=== PATIENT | female | born 1990 | race Hispanic/Latino ===

== ENCOUNTER 2016-12-30 01:26 | Emergency (ER) | payer OTHER ==
[~2016-12-30] VITALS: Ht 157.5 cm; Wt 92.7 kg
[~2016-12-30 01:26] MED LIST: DOCU-41 PO; FEXO30TA19 PO; FLUT9.9S NS; HYDR-4003 PO; IBUP-1827 PO; MULT-1018 PO
[2016-12-30 01:31] VITALS: BP 118/83; PULSE 94; RESP 16; O2SAT 98
--- NOTE | 2016-12-30 03:11 | ED.REPORT ---
HPI-Abd Pain F Under 40 Date of Service December 30, 2016 ED Provider: Arnold Gonzalez MD Pt is a 26 year old female presenting to the ED complaining of intermittent abdominal pain since 2009 about once per year. This year, it has happened 3 times, each at night, with sharp pain radiating to her back. Pt has had a CT scan in 2009 which was normal but no ultrasound has been done. Nursing Notes Stated Complaint: ABDOMINAL PAIN Chief Complaint: Female Abdominal Pain Nursing Notes Reviewed: Yes Allergies: Coded Allergies: Sulfa (Sulfonamide Antibiotics) (Verified Allergy, Severe, RASH, 07/02/16) Dust (Verified Adverse Reaction, Severe, NASAL CONGESTION,SNEEZING, ) Uncoded Allergies: GRASSES (Adverse Reaction, Severe, NASAL CONGESTION,SNEEZING, 07/02/16) Scheduled Fexofenadine ODT (Children's Maeve Allergy) 30 Mg Tablet 30 MG PO DAILY Fluticasone Propionate (Flonase Allergy Relief) 50 Mcg/Actuation [place].susp 9.9 ML NS DAILY Multivitamin (Multi Vitamin Daily) 1 Each Tablet 1 EACH PO DAILY Scheduled PRN Docusate Sodium (Colace) 100 Mg Capsule 100 MG PO BID PRN PRN For Constipation Hydrocodone-Acetaminophen 5-325 mg (Hydrocodone-Acetaminophen 5-325 mg) 1 Each Tablet 1-2 TABLET PO Q6H PRN PRN For Pain Ibuprofen (Ibuprofen) 600 Mg Tablet 600 MG PO TID PRN PRN For Pain General Time Seen by MD: 03:10 Chief Complaint Abdominal pain Hx Obtained From: Patient Arrived By: Walk-in Sudden in Onset?: No Onset Occurred: Onset unknown Symptom Duration: Since onset Progression since Onset: Constant Location: : Diffuse Quality: Painful Severity: Current: Pain level 4 out of 10 Severity: Maximum: Severe Recent Healthcare: No recent doctor visit, No recent hospitalization Similar Sx Previous: Yes Past Medical History Past Medical History denies Past Surgical History denies Smoking History Unknown if Ever Smoker Ambulatory Status Independent Review of Systems Respiratory: Denies: Wheezing GI: Reports: Abdominal pain, Denies: Vomiting Musculoskeletal: Reports: Back pain Complete sys rev & neg: except as marked. Physical Exam Initial Vital Signs Vital Signs (First) Date Time Temp Pulse Resp B/P Pulse Ox O2 Delivery O2 Flow Rate FiO2 12/30/16 01:31 37.2 94 16 118/83 98 Room Air Initial VS: Reviewed Head / Eyes: Atraumatic, Normocephalic, PERRL ENT: Mucous membranes moist, Conjunctiva normal, No scleral icterus Neck: Supple, Non-tender, Full range of motion Skin: Warm, Dry, No cyanosis Neurologic: Alert, Oriented, Nonfocal Psychiatric: Mood/affect normal, Behavior normal, Normal thought content General/Constitutional: Awake, Alert, No acute distress Appearance / Presentation: Positive: Obese Respiratory / Chest: Breath sounds NL, Breath sounds = bilat, No respiratory distress, No rales, No rhonchi, No wheezing Cardiovascular: Heart rate NL, Regular rhythm, Heart sounds NL, Peripheral circulation NL Abdomen: Atraumatic Tenderness/Guarding/Rebound: Positive: Tender RUQ... (Mild), Tender epigastric Interpretation & Diagnostics Lab Results Interpretation Result Diagram: 12/30/16 0330 12/30/16 0330 Test 12/30/16 03:00 12/30/16 03:30 Urine Color Straw (YELLOW) Urine Appearance Clear (CLEAR,HAZY) Urine pH 5.5 (5.0-8.0) Urine Specific [place] 1.015 (1.003-1.035) Urine Protein Negativemg/dL (NEG,TRACE) Urine Glucose (UA) Negativemg/dL (NEGATIVE) Urine Ketones Negativemg/dL (NEGATIVE) Urine Occult Blood Trace (NEGATIVE) Urine Nitrite Negative (NEGATIVE) Urine Bilirubin Negative (NEGATIVE) Urine Urobilinogen Normalmg/dL (NORMAL) Urine Leukocyte Esterase Negative (NEGATIVE) Urine RBC 0-2/hpf (0-2) Urine WBC 0-5/hpf (0-5) Urine Epithelial Cells Moderate/hpf (NONE-MOD) Urine Crystals None seen (NONE SEEN) Urine Bacteria Few/hpf (NONE-FEW) Urine Hyaline Casts None/lpf (NONE) Urine Granular Casts None seen (NONE SEEN) Urine Waxy Casts None seen (NONE SEEN) Urine Red Blood Cell Casts None seen (NONE SEEN) Urine White Blood Cell Casts None seen (NONE SEEN) Urine Mucus None seen (None Seen) Urine Trichomonas None seen (NONE SEEN) Urine Yeast None (NONE SEEN) Urinalysis Comment None Urine Culture Reflexed Not indicated White Blood Count 8.7th/mm3 (3.8-10.1) Red Blood Count 4.05mil/mm3 (3.90-5.20) Hemoglobin 12.3g/dL (12.0-15.6) Hematocrit 35.2% (35.0-46.0) Mean Corpuscular Volume 86.9fL (81-100) Mean Corpuscular Hemoglobin 30.4pg (27.0-35.0) Mean Corpuscular Hemoglobin Concent 34.9% (32.0-37.0) Red Cell Distribution Width 12.2% (12.3-15.4) Platelet Count 202bil/L (150-400) Neutrophils (%) (Auto) 73.8% (40-74) Lymphocytes (%) (Auto) 17.0% (14-46) Monocytes (%) (Auto) 6.5% (4-12) Eosinophils (%) (Auto) 2.4% (0-5) Basophils (%) (Auto) 0.2% (0-3) Sodium Level 137mEq/L (134-144) Potassium Level 4.0mEq/L (3.5-5.2) Chloride Level 102mEq/L (97-108) Carbon Dioxide Level 20mmol/L (18-29) Blood Urea Nitrogen 14mg/dL (6-20) Creatinine 0.54mg/dL (0.57-1.00) Estimat Glomerular Filtration Rate 194mL/min (>59) Glucose Level 124mg/dL (60-99) Calcium Level 9.6mg/dL (8.5-10.1) Magnesium Level 1.8mg/dL (1.6-2.6) Total Bilirubin 0.2mg/dL (0.0-1.2) Aspartate Amino Transf (AST/SGOT) 36U/L (0-50) Alanine Aminotransferase (ALT/SGPT) 24U/L (0-32) Alkaline Phosphatase 65U/L (25-150) Total Protein 7.4g/dL (6.4-8.4) Albumin 4.2g/dL (3.4-5.0) Lipase 30U/L (13-60) Hold Cullen Top Tube Received (Received) Lab values outside NL range: no clinical significance. Re-Eval/Medical Decision Med Decision/Clinical Course 26-year-old female with intermittent upper abdominal pain. Labs are normal tonight and there is no indication for acute imaging at this time. Recommend outpatient ultrasound to rule out gallstones. This presentation is not typical of serious or surgical disease. Re-Evaluation/Progress : Time of Eval: 04:46 Patient Status: Condition improved Re-Evaluation/Progress Note: Discussed plan for discharge and follow up with PCP. Counseled Regarding: Diagnosis, Lab results, Need for follow-up, When/why to return to ED Discharge & Departure Primary Impression: Epigastric abdominal pain Disposition: Home Discharge Condition All VS Reviewed: Yes Condition: Improved Patient Instructions: Acute Abdominal Pain (ED) Additional Instructions: Your labs are all normal. The pattern of your pain can sometimes be due to gallstones. I recommend that you talk to you family doctor about an outpatient ultrasound. Return to the emergency room if significantly worsening. Referrals: Ewa Lechuga DO (PCP) Alejandroibfroylan Attestation Portions of this note were transcribed by Lelia Holly. I, Dr. Gonzalez personally performed the history, physical exam and medical decision-making; I reviewed and confirmed the accuracy of the information in the transcribed note. Signed by: Chrissy Potter, 12/30/2016 at 0456. copies to: Ewa Lechuga Howard L MD December 30, 2016 03:11 LELIA HLOLY December 30, 2016 03:17
[2016-12-30 03:15] LABS: APPEARANCE,URINE CLEAR (CLEAR,HAZY); COLOR,URINE STRAW (YELLOW); OCCULT BLOOD,URINE TRACE (NEGATIVE); PH,URINE 5.5 (5.0-8.0); UROBILINOGEN,URINE NORMAL (NORMAL)
[2016-12-30 03:40] LABS: BASOPHILS % (AUTO) 0.2 % (0-3); EOSINOPHILS % (AUTO) 2.4 % (0-5); MONOCYTES % (AUTO) 6.5 % (4-12); Mean Corpuscular Hemoglobin 30.4 pg (27.0-35.0); Mean Corpuscular Volume 86.9 fL (81-100); NEUTROPHILS % (AUTO) 73.8 % (40-74); Platelet Count 202 bil/L (150-400)
[2016-12-30 04:00] LABS: Magnesium 1.8 mg/dL (1.6-2.6)
[2016-12-30 05:16] VITALS: BP 125/81; PULSE 81; RESP 16; O2SAT 97
[2017-01-18] MEDS ORDERED: BIRTH CONTROL PO (12:58)
[2017-01-18] MEDS ORDERED: KEN25CR TP (12:58)
== END 2016-12-30 05:10 | disposition home or self-care (01) ==
LOC: SED 01:26
DX: R10.13 Epigastric pain (principal); Z88.2 Allergy status to sulfonamides

== ENCOUNTER 2017-01-23 06:22 | Day surgery (SDC) | payer OTHER ==
[~2017-01-23] VITALS: Ht 160 cm; Wt 92.1 kg
[2017-01-23] VITALS (13 sets, daily range): BP systolic 97–122; BP diastolic 54–71; PULSE 71–112; RESP 15–21; O2SAT 95–100
[~2017-01-23 06:22] MED LIST changes: +BIRTH CONTROL PO; +CeFAZolin 2 Gm/50 mL D5W IV Premix IV ONE; -DOCU-41 PO; -HYDR-4003 PO; +KEN25CR TP; +Lactated Ringer's 1,000 ML IV SCH
[2017-01-23] MEDS ORDERED: MetoCLOpramide 5 mg/mL 2 mL Inj ONE (06:23)
[2017-01-23] MEDS ORDERED: fentaNYL-PF 50 mCg/mL 2 mL Inj ONE (06:23)
[2017-01-23] MEDS ORDERED: Glycopyrrolate 0.2 MG/ML 1mL Inj ONE (06:23)
[2017-01-23] MEDS ORDERED: Propofol 10 mg/mL 20 mL Inj ONE (06:23)
[2017-01-23] MEDS ORDERED: Neostigmine 1 mg/mL 10 mL Inj ONE (06:23)
[2017-01-23] MEDS ORDERED: Ondansetron 2 mg/mL 2 mL Inj ONE (06:23)
[2017-01-23] MEDS ORDERED: Rocuronium 10 mg/mL 5 mL Inj ONE (06:23)
[2017-01-23] MEDS ORDERED: Dexamethasone 4 mg/mL Inj ONE (06:23)
[2017-01-23] MEDS ORDERED: Lactated Ringer's 1,000 ML IV ONE (08:02)
[2017-01-23] MEDS ORDERED: Lactated Ringer's 500 ML IV PRN (08:27)
[2017-01-23] MEDS ORDERED: Lactated Ringer's 1,000 ML IV SCH (08:27)
--- NOTE | 2017-01-23 08:27 | PCM.HPANE ---
Patient Data Surgeon Admitting Provider: Attending Provider:Marce Leon MD Primary Care Physician:Ewa Lechuga DO Other Provider:Pancho Short Anesthesia Reason for Visit Chronic Cholecystitis Ht/WT & BMI Height (Feet): 5 Height (Inches): 3 Weight (Kilograms): 92.125 Body Mass Index 35.00 Allergies Coded Allergies: Sulfa (Sulfonamide Antibiotics) (Verified Allergy, Severe, RASH, 07/02/16) Dust (Verified Adverse Reaction, Severe, NASAL CONGESTION,SNEEZING, ) Uncoded Allergies: GRASSES (Adverse Reaction, Severe, NASAL CONGESTION,SNEEZING, 07/02/16) Past Anesthesia History Anesthesia History: Denies:: Anesthesia Reactions, Fam Anesthesia Reaction, Fam Malignant Hypertherm, Malignant Hyperthermia Diabetes History Hx Diabetes?: No MRSA MRSA: No Medications Hypertension Medication: No Home Meds Incl Beta Rick: No Reported Medications [ Control] No Conflict Check1 Tab PO DAILY 01/18/17 Triamcinolone Acet (Triamcinolone Acetonide Cream)1 Applic/0.25 Gm Cr1 Applic TP BID #60 GM Ref 0 0.1% 01/18/17 Ibuprofen 600 Mg [id number] Mg PO TID PRN For Pain Ref 0 07/02/16 Multivitamin (Multi Vitamin Daily)1 Each Tablet1 Each PO DAILY 30 Days Ref 0 07/02/16 Fluticasone Propionate (Flonase Allergy Relief)50 Mcg/Actuation [place].susp9.9 Ml NS DAILY 07/02/16 Fexofenadine ODT (Children's Maeve Allergy)30 Mg [id number] Mg PO DAILY 07/02/16 Discontinued Reported Medications Hydrocodone-Acetaminophen 5-325 mg 1 Each Tablet1-2 Tablet PO Q6H PRN For Pain Ref 0 07/02/16 Docusate Sodium (Colace)100 Mg [id number] Mg PO BID PRN For Constipation Ref 0 07/02/16 History History of ENT Problems?: Yes HEENT History: Positive for:: Sinus Problem (ALLERGIC RHINITIS,HX OF SEPTAL DEVIATION,EPISTAXIS HX ALLERGY SHOTS) Denture Type: None Teeth Condition: Within Normal Limits Hx of Heart Problems?: No Cardiovascular History: Denies:: AICD Abdominal Aortic Aneurism Atrial Fibrillation Cardiac Surgery Chest Pain Congestive Heart Failure Coronary Artery Disease Edema Heart Murmur Hypertension Irregular Heartbeat Pacemaker Peripheral Vascular Rheumatic Fever Thrombophlebitis Valvular Heart Disease Hx of Respiratory Problem?: Yes Respiratory History: Positive for:: Dyspnea (INTERMITTANT WHEEZING R/T ALLERGIES) Denies:: Asthma COPD Chest Surgery Cough Emphysema Hemoptysis Oxygen Administration Pneumonia Pulmonary Embolism Tuberculosis Use of C-PAP Machine Use of Inhalers / NEBS Hx Neurologic Problems?: Yes Neurological History: Positive for:: Headaches Hx of GI Problems?: Yes Hx of Problems?: Yes Genitourinary History: Positive for:: Urinary Tract Infection (HX OF DURING ) Female Hx: Denies:: Currently (S/P LT OVARIAN DERMOID CYSTECTOMY) Skin History: Positive for:: History Skin Disorders? (HX HIVES-UNKNOWN ETIOLOGY) Denies:: Pressure Ulcers Hx Musculoskeletal Problems?: No Hx of Psycho/Social Problems?: No Hx Surgeries?: Yes (LT OVARIAN DERMOID CYSTECTOMY) Hx Any Other Health Problems?: Yes Other History: Positive for:: Hospitalization ([facility]) Denies:: Cancer Endocrine Disease Thyroid Disease History Blood Transfusions: Denies:: Blood Transfusions Hx Diabetes: No Hx Alcohol Use: NoHx Substance Use: No Smoking Status: Unknown if Ever Smoker Have You Smoked inLast 12 mo: No Stop/Bang S-Snoring: Do You Snore Loudly: No T-Tired: feel tired, fatigued: Yes O-Obsered: Observed not breath: No P-Blood Pressure: treated: No B- Body Mass Index > 35 kg/m2: Yes A- Age over 50: No N- Neck Large Circumference: No G- Gender Male: No CARMEL Total Score: 2 CARMEL Risk Assessment: Low Risk, <3 Yes Risk Assessment Category Category 1A: Patient has history of documented sleep apnea, and HAS NOT received any narcotic, sedative or anesthesia administration during this stay. Category 1B: Patient has history of documented sleep apnea, and HAS received any narcotic , sedative or anesthesia administration during this stay Category 2: Patient has SUSPECTED Obstructive Sleep Apnea, and HAS received any narcotic , sedative or anesthesia administration during this stay. Category 3: Patient has SUSPECTED Obstructive Sleep Apnea and HAS NOT received narcotic, sedative or anesthesia administration during this stay. Category 4: Outpatient in Procedural Areas with known sleep apnea or who screen positive for High Risk via the STOP/BANG questionnaire. Exam Exam General Appearance: Alert HEENT/AIRWAY: MP 1 Lungs: Clear to Auscultation, Normal Air Movement Heart: Exam Unremarkable, Regular Rate/Rhythm, No Murmurs/Rubs/Gallops Plan Impression Patient chart reviewed, patient interviewed and anesthestic plan with risks, benefits, and alternatives discussed, and informed consent obtained. NPO per Anesth. Guidelines: Yes ASA Physical Status: ASA2 Mod Systemic Disease Anesthetic Plan: GA Bene/Risks/Altern/Consents: Yes HP Complete Prior to Induction: Yes Solitario Fuentes MD Jan 23, 2017 07:44
[2017-01-23] MEDS ORDERED: Bupivacaine-MPF 0.5% W/EPI 30 mL Inj INFILTRATE ONE (08:28)
[2017-01-23] MEDS ORDERED: HYDROmorphone 1 mg/mL Inj IVPUSH PRN (08:30)
[2017-01-23] MEDS ORDERED: Phenylephrine 10,000 mCg/mL Inj IVPUSH PRN (08:30)
[2017-01-23] MEDS ORDERED: Atropine 0.4 mg/mL Inj IVPUSH PRN (08:30)
[2017-01-23] MEDS ORDERED: Ondansetron 2 mg/mL 2 mL Inj IVPUSH PRN (08:30)
[2017-01-23] MEDS ORDERED: Labetalol 5 mg/mL 4 mL Inj IV PRN (08:30)
[2017-01-23] MEDS ORDERED: EPHEDrine Sulfate 50 mg/mL Inj IVPUSH PRN (08:30)
[2017-01-23] MEDS ORDERED: MetoCLOpramide 5 mg/mL 2 mL Inj IVPUSH PRN (08:30)
--- NOTE | 2017-01-23 10:18 | PCM.SURGOP ---
Surgical Operative Report Date of Service: Jan 23, 2017 Pre Operative Diagnosis Chronic cholecystitis Post Operative Diagnosis Chronic cholecystitis Procedure: Laparoscopic cholecystectomy Surgeon and Dairy Farmworker: Surgeon: Marce Leon MD Assistants: Tommy Coronel PA-C; Sarwat Diego PA-C; Daniella Haley, MS 4 A surgical attendant was necessary for retraction and the camera. Indication for Procedure This is a 26-year-old woman who presented to the emergency department with epigastric abdominal pain radiating to the back, and on ultrasound was found to have a thickened gallbladder wall and several large gallstones greater than 1 cm in size. Labs and vitals were normal at the time of the emergency department visit, including white blood cell count, bilirubin, and lipase. She followed up in the general surgery clinic and was therefore scheduled for laparoscopic cholecystectomy as an outpatient. Findings: 1. Moderate inflammation of the gallbladder wall consistent with chronic cholecystitis. 2. Several large gallstones, greater than 1 cm each, as was noted on preoperative ultrasound. Procedure Details The patient was brought to the operating room and placed in supine position. General endotracheal anesthesia was smoothly induced. Antibiotics were infused. A warming blanket and SCDs were placed. A foot board was placed. The operative field was prepped and draped in sterile fashion. A pause was performed to confirm the correct patient, procedure, site, and side. A transverse 10 mm incision was made just below the umbilicus. The abdomen was entered using an 11 mm Optiview port. Three additional 5 mm ports were placed in the epigastrium and right upper quadrant. The gallbladder was identified and lifted cephalad. Dissection then proceeded to identify the cystic duct, cystic artery, and to expose the bottom one third of the cystic plate. Once there were two and only two structures entering the gallbladder, the cystic duct was clipped on the gallbladder and patient side, and the cystic artery was clipped on the patient's side and once on the gallbladder side, and both were then divided. The gallbladder was then removed from its bed on the liver with electrocautery. Prior to completely removing the gallbladder, a final look was taken at the stump of the cystic artery and cystic duct, and there was no bleeding or bile leak. The gallbladder was then fully removed from the liver and placed in an EndoCatch bag and removed. The three 5 mm ports were removed under direct vision, the 10 mm mid abdominal port was removed, and 3 interrupted 0 PDS stitches were placed laparoscopically to close the fascia. There was no fascial defect at the end of the case. 0.5% Marcaine with epinephrine was infused at all port sites for postoperative analgesia. The skin was closed with subcuticular 4-0 Monocryl. Sterile dressings were placed. The patient was awakened from general anesthesia and taken to the postoperative care unit in good condition. Complications There were no periprocedural complications identified. Surgical Specimen Removed: Yes Specimen sent to Pathology: Yes Surgical Specimen description: Gallbladder Anesthetic Plan: GA Grafts, Implants: None Output, Estimated Blood Loss: 2 (ml) Blood Administration during colbert: No Marce Leon MD Jan 23, 2017 10:18
--- NOTE | 2017-01-23 11:03 | PCM.ANEP1 ---
Post Anesthesia PACU Phase 1 Assessment Vital Signs Vital Signs Date Time Temp Pulse Resp B/P Pulse Ox O2 Delivery O2 Flow Rate FiO2 01/23/17 10:50 89 15 111/69 100 Simple Mask 10 01/23/17 10:39 86 16 108/60 100 Simple Mask 10 01/23/17 10:35 86 16 107/62 100 Simple Mask 10 01/23/17 10:30 86 17 112/62 100 Simple Mask 10 01/23/17 10:25 87 17 122/71 100 Simple Mask 10 01/23/17 10:18 37 112 21 111/54 100 Simple Mask 10 01/23/17 08:03 35.7 71 20 107/57 98 Room Air Anesthetic Administered: GA Level of Alertness: Awake, talking CHILDERS's with Equal Strength: Yes Pain: No Nausea or Vomiting: No CV Function & Hydration Stable: Yes Airway Device: Endotrachial Tube Oxygen Delivery: Simple Mask Lungs: Clear to Auscultation, Normal Air Movement PACU Phase 2 Assessment Complications: No Follow up Care: N/A Patient Instructions Provided: N/A Solitario Fuentes MD Jan 23, 2017 11:03
[2017-01-23] MEDS: fentaNYL-PF 50 mCg/mL 2 mL Inj IVPUSH PRN ×2 (11:15→11:21)
[2017-01-23] MEDS: oxyCODONE-Acetamin 5-325 mg Tablet PO PRN ×2 (11:37→12:57)
--- NOTE | 2017-01-25 12:39 | PATH ---
SURGICAL PATHOLOGY Attending Physician:Marce Leon MD CASE STATUS: Signed Out PATIENT NAME: TOMÁS FAYE PID: [id number] : 1990 DATE COLLECTED:01/23/2017 16:12 SPECIMEN: Gallbladder CLINICAL HISTORY: CHRONIC CHOLECYSTITIS 1. GALLBLADDER FINAL DIAGNOSIS: 1.GALLBLADDER: CHOLELITHIASIS WITH ASSOCIATED MILD CHRONIC CHOLECYSTITIS. ICD10 K80.66 GROSS DESCRIPTION: The specimen is received in formalin, labeled with the patient's name, sublabeled as gallbladder and consists of an intact gallbladder (length-12.8 cm, diameter-3.2 cm) with a patent cystic duct. The serosa is marcelo-blue smooth and shiny. The lumen contains dark green viscous bile and 4 yellow-green solid firm multifaceted calculi (8.5 x 2.3 x 1.8 cm in aggregate, each approximately 2.3 x 1.8 x 1.8 cm) with rosa crystalline cut surfaces. The mucosa is green flat with a trabeculated rough surface. The wall is up to 0.1 cm thick. No nodules, masses or lesions are identified. Section code: (A) gallbladder, practice representative. 01/24/17 JM MICRO DESCRIPTION: See diagnosis. ICD-9 CODES: CPT CODES: 1: 48250 Electronically Signed Out Shiv Pineda MD [facility] [address], [place] [address] Technical component performed at [facility], [facility] [address], [place], [address]
== END 2017-01-23 23:59 | disposition home or self-care (01) ==
LOC: SAS 06:22
PROVIDERS: ATTEND Surgery
DX: K80.10 Calculus of gallbladder with chronic cholecystitis without obstruction (principal); N83.202 Unspecified ovarian cyst, left side; J30.9 Allergic rhinitis, unspecified
CPT/HCPCS: 47562; J0690; J1100; J2250; J2405; J2710; J2765; J3010; J7120